=== PATIENT | male | born 1965 | race Caucasian/White ===

== ENCOUNTER 2017-08-14 17:10 | Emergency (ER) | payer BC ==
[2017-08-14 17:22] VITALS: BP 136/77; PULSE 97; TEMP 98.1; BMI 32.5
[2017-08-14 18:03] LABS: BASO % 0.7 % (0-2.0); EOS % 2.7 % (0-4.5); HEMATOCRIT 36.1 % (35.4-49); HEMOGLOBIN 12.3 GM/dL (11.7-16.9); LYMPH % 12.6 % (8-40); MCH 28.7 pg (25.7-33.7); MCHC 34.2 g/dl (32.0-35.9); MEAN CELL VOLUME 83.9 fl (80-96); MEAN PLT VOLUME 7.4 fl (7.5-11.1); PLATELET COUNT 187 K/MM3 (134-434); RDW 16.3 % (11.9-15.9); WHITE BLOOD COUNT 4.2 K/mm3 (4.0-10.0)
--- NOTE | 2017-08-14 18:19 | PDOC ---
History of Present Illness - General Chief Complaint: Seizure Stated Complaint: SEIZURE Time Seen by Provider: 08/14/17 17:23 History Source: Patient Exam Limitations: No Limitations - History of Present Illness Initial Comments: 08/14/17 18:13 Patient is a 52M with history of hypoglycemic episodes causing syncope/seizures , gastric bypass, HIV (on no medication, says his last viral load was undetectable) here today complaining of seizure. EMS reports that witnesses at patient's work describe a full tonic/clonic seizure lasting less than five minutes. Patient was confused afterwards with post-ictal period. EMS reports fingerstick glucose was 68, and that patient improved after getting D10. Patient states that he normally has some sort of prodromal symptoms before his hypoglycemic episodes, and that these have not happened for a year. He does not currently see a neurologist. Denies nausea, vomiting, fevers, chills, chest pain , shortness of breath, headache. Past History - Past Medical History Allergies/Adverse Reactions: Allergies Allergy/AdvReac Type Severity Reaction Status Date / Time No Known Allergies Allergy Verified 08/14/17 17:21 Home Medications: Ambulatory Orders NK [No Known Home Medication] 08/14/17 COPD: No - Surgical History Abdominal Surgery: Yes (gastric bypass) - Suicide/Smoking/Psychosocial Hx Smoking History: Never smoked Have you smoked in the past 12 months: No Number of Cigarettes Smoked Daily: 20 Information on smoking cessation initiated: No Hx Alcohol Use: No Drug/Substance Use Hx: No Substance Use Type: None Review of Systems - Review of Systems Comments:: 08/14/17 18:15 GENERAL/CONSTITUTIONAL: No fever or chills. No weakness. HEAD, EYES, EARS, NOSE AND THROAT: No change in vision. No sore throat. CARDIOVASCULAR: No chest pain or shortness of breath RESPIRATORY: No cough, wheezing, or hemoptysis. GASTROINTESTINAL: No nausea, vomiting, diarrhea or constipation. GENITOURINARY: No dysuria, frequency, or change in urination. MUSCULOSKELETAL: No joint or muscle swelling or pain. No neck or back pain. SKIN: No rash NEUROLOGIC: No headache, vertigo, or change in strength/sensation. Positive for loss of consciousness HEMATOLOGIC/LYMPHATIC: No anemia, easy bleeding, or history of blood clots. ALLERGIC/IMMUNOLOGIC: No hives or skin allergy. *Physical Exam - Vital Signs Last Vital Signs Temp Pulse Resp BP Pulse Ox 98.1 F 97 H 18 136/77 99 08/14/17 17:13 08/14/17 17:13 08/14/17 17:13 08/14/17 17:13 08/14/17 17:13 - Physical Exam Comments: 08/14/17 18:16 GENERAL: Awake, alert, and fully oriented, in no acute distress HEAD: No signs of trauma, normocephalic, atraumatic EYES: PERRLA, EOMI, sclera anicteric, conjunctiva clear ENT: Auricles normal inspection, hearing grossly normal, nares patent, oropharynx clear without exudates. Moist mucosa NECK: Normal ROM, supple, no lymphadenopathy, JVD, or masses LUNGS: No distress, speaks full sentences, clear to auscultation bilaterally HEART: Regular rate and rhythm, normal S1 and S2, no murmurs, rubs or gallops, peripheral pulses normal and equal bilaterally. ABDOMEN: Soft, nontender, normoactive bowel sounds. No guarding, no rebound. No masses EXTREMITIES: Normal inspection, Normal range of motion, no edema. No clubbing or cyanosis. NEUROLOGICAL: Cranial nerves II through XII grossly intact. Normal speech, no focal sensorimotor deficits SKIN: Warm, Dry, normal turgor, no rashes or lesions noted. ED Treatment Course - LABORATORY CBC & Chemistry Diagram: 08/14/17 17:53 08/14/17 17:53 - ADDITIONAL ORDERS Additional order review: 08/14/17 17:53 RBC 4.30 MCV 83.9 MCHC 34.2 RDW 16.3 H MPV 7.4 L Neutrophils % 77.0 Lymphocytes % 12.6 Monocytes % 7.0 Eosinophils % 2.7 Basophils % 0.7 - RADIOLOGY Radiology Studies Ordered: Category Date Time Status HEAD CT WITHOUT CONTRAST [CT] Stat CT Scan 08/14/17 17:42 Ordered CHEST PA & LAT [RAD] Stat Radiology 08/14/17 17:41 Ordered Medical Decision Making - Medical Decision Making 08/14/17 18:16 Patient is 52M with history of hypoglycemic events, gastric bypass, HIV here today complaining of seizure. Vital signs stable and normal. Patient back at baseline. Do not believe that patient had hypoglycemic episode, patient's sugar level not low enough to typically cause seizure. On re-evaluation patient states that he did have prodromal symptom, but concerned that patient is trying to go home faster. DDx includes, but is not limited to: metabolic derangement, mass, electrolyte abnormalities. Will evaluate with fingerstick, cbc, cmp, trop , ekg, pt/inr, ct head. 08/14/17 19:03 Laboratory Tests 08/14/17 08/14/17 17:53 17:53 WBC 4.2 Hgb 12.3 Hct 36.1 Plt Count 187 Random Glucose 64 L Troponin I < 0.02 CBC normal. Glucose 64. Troponin undetectable. Concerning glucose due to patient 's baseline at 68 and receiving D10. Patient given orange juice. Reassessed, patient remains at baseline. EKG shows normal sinus rhythm with rate of 69. No st elevation/depression. No significant t wave abnormalities. Normal axis. Normal QRS/QTc/WI intervals. 08/14/17 19:[address] Graham. *DC/Admit/Observation/Transfer Diagnosis at time of Disposition: Seizure - Discharge Dispostion Condition at time of disposition: Stable - Referrals Referrals: ON STAFF,NOT [Primary Care Provider] - - Patient Instructions - Post Discharge Activity
[2017-08-14 18:33] LABS: ALBUMIN 3.4 g/dl (3.4-5.0); ANION GAP 4 (8-16); BILIRUBIN,TOTAL 0.2 mg/dL (0.2-1.0); BLOOD UREA NITROGEN 14 mg/dL (7-18); CALCIUM 8.3 mg/dL (8.5-10.1); CHLORIDE 109 mmol/L (98-107); CO2 27 mmol/L (21-32); CREATININE 0.9 mg/dL (0.7-1.3); GLUCOSE,RANDOM 64 mg/dL (74-106); MAGNESIUM 2.3 mg/dL (1.8-2.4); POTASSIUM 4.1 mmol/L (3.5-5.1); SGOT/AST 19 U/L (15-37); SGPT/ALT 17 U/L (12-78); SODIUM 140 mmol/L (136-145); TOT PROT 7.4 g/dl (6.4-8.2)
[2017-08-14 18:36] LABS: ALK PHOS 78 U/L (45-117)
--- NOTE | 2017-08-14 18:38 | PDOC ---
Attending Attestation - Resident Resident Name: Jr Koo - ED Attending Attestation I have performed the following: I have examined & evaluated the patient, The case was reviewed & discussed with the resident, I agree w/resident's findings & plan, Exceptions are as noted - HPI HPI: 08/14/17 18:36 Mr Cardozo is a 52 yo M h/o HIV (VL UD, not currently on HAART), h/o hypoglycemic episodes causing syncope/seizures (last episode 10 years ago), gastric bypass, brought in by EMS s/p syncope vs seizure. Per witnesses, generalized tonic/clonic seizure lasting less than five minutes. (+) post ictal FS on scene - 68 Pt reportedly improved after getting dextrose He does not currently see a neurologist. Denies nausea, vomiting, fevers, chills, chest pain, shortness of breath, headache. - Physicial Exam PE: 08/14/17 18:38 GENERAL: Awake, alert, and fully oriented, in no acute distress HEAD: No signs of trauma, normocephalic, atraumatic EYES: PERRLA, EOMI, sclera anicteric, conjunctiva clear ENT: Auricles normal inspection, hearing grossly normal, nares patent, oropharynx clear without exudates. Moist mucosa NECK: Normal ROM, supple, no lymphadenopathy, JVD, or masses LUNGS: No distress, speaks full sentences, clear to auscultation bilaterally HEART: Regular rate and rhythm, normal S1 and S2, no murmurs, rubs or gallops, peripheral pulses normal and equal bilaterally. ABDOMEN: Soft, nontender, normoactive bowel sounds. No guarding, no rebound. No masses EXTREMITIES: Normal inspection, Normal range of motion, no edema. No clubbing or cyanosis. NEUROLOGICAL: Cranial nerves II through XII grossly intact. Normal speech, no focal sensorimotor deficits SKIN: Warm, Dry, normal turgor, no rashes or lesions noted. - Medical Decision Making 08/14/17 18:38 52 yo M presenting s/p likely seizure Will do: Labs CT head Re Assess Anticipate discharge Follow up with Neuro Patient signed out to overnight attending and resident
[2017-08-14 18:42] LABS: INR 1.04 (0.82-1.09); PROTHROMBIN TIME (PATIENT) 11.7 SEC (9.98-11.88)
--- NOTE | 2017-08-14 19:42 | PDOC ---
*Physical Exam - Vital Signs Last Vital Signs Temp Pulse Resp BP Pulse Ox 98.1 F 97 H 18 136/77 99 08/14/17 17:13 08/14/17 17:13 08/14/17 17:13 08/14/17 17:13 08/14/17 17:13 ED Treatment Course - LABORATORY CBC & Chemistry Diagram: 08/14/17 17:53 08/14/17 17:53 - ADDITIONAL ORDERS Additional order review: Laboratory Results 08/14/17 08/14/17 17:53 17:53 PT with INR 11.70 INR 1.04 Sodium 140 Potassium 4.1 Chloride 109 H Carbon Dioxide 27 Anion Gap 4 L BUN 14 Creatinine 0.9 Creat Clearance w eGFR > 60 Random Glucose 64 L Calcium 8.3 L Magnesium 2.3 Total Bilirubin 0.2 AST 19 ALT 17 Alkaline Phosphatase 78 Creatine Kinase 258 Creatine Kinase Index 0.9 CK-MB (CK-2) 2.550 Troponin I < 0.02 Total Protein 7.4 Albumin 3.4 08/14/17 17:53 RBC 4.30 MCV 83.9 MCHC 34.2 RDW 16.3 H MPV 7.4 L Neutrophils % 77.0 Lymphocytes % 12.6 Monocytes % 7.0 Eosinophils % 2.7 Basophils % 0.7 Medical Decision Making - Medical Decision Making 08/14/17 19:41 The patient was signed out to me by Dr. Koo, day team. The patient is a 52M with a PMH of hypoglycemia who presents after having a seizure and being found hypoglycemic. Pending repeat fingerstick and CT head imaging. 08/14/17 19:53 Repeat fingerstick is 158. Pending CT head. 08/14/17 20:25 Pt is desiring to leave AMA. I have instructed him that getting the CT head would be beneficial to our management and understanding of his presentation and if he had a possible brain bleed. The patient understands and signed the AMA form. *DC/Admit/Observation/Transfer Diagnosis at time of Disposition: Seizure - Discharge Dispostion Disposition: AGAINST MEDICAL ADVICE Condition at time of disposition: Stable - Referrals - Patient Instructions - Post Discharge Activity
--- NOTE | 2017-08-15 18:06 | EKG ---
Test Reason : Blood Pressure : / mmHG Vent. Rate : 069 BPM Atrial Rate : 069 BPM P-R Int : 176 ms QRS Dur : 106 ms QT Int : 424 ms P-R-T Axes : 049 064 060 degrees QTc Int : 454 ms POOR DATA QUALITY, INTERPRETATION MAY BE ADVERSELY AFFECTED NORMAL SINUS RHYTHM LEFT ATRIAL ENLARGEMENT BORDERLINE ECG NO PREVIOUS ECGS AVAILABLE Confirmed by MD KALYAN, JAYDEN ([id number]) on 08/15/2017 6:06:28 PM Referred By: Confirmed By:JAYDEN BIGGS MD
== END 2017-08-14 20:33 | disposition left against medical advice (07) ==
LOC: JER 17:10
DX: R55 Syncope and collapse (principal); Z21 Asymptomatic human immunodeficiency virus [HIV] infection status
CPT/HCPCS: 36415; 80053; 82550; 82553; 82962; 83735; 84484; 85025; 85610; 93005; 93010; 99283-25